=== PATIENT | female | born 1995 | race African-American/Black ===

== ENCOUNTER 2018-09-19 14:39 | Emergency (ER) | payer SELFPAY ==
[~2018-09-19] VITALS: Ht 170.2 cm; Wt 71.7 kg
[2018-09-19] MEDS ORDERED: RT-ALBUTEROL/IPRATROPIUM 3 ML (DUONEB) VIAL INH ONE (15:15)
[2018-09-19] MEDS ORDERED: NS 1000 ML IV BAG IV ONE (15:15)
[2018-09-19] MEDS ORDERED: HYDROcodone/APAP 5 MG/325 MG (LORTAB) TAB PO ONE (15:15)
[2018-09-19 15:18] LABS: HEMATOCRIT 23 % (35-52); HEMOGLOBIN 8.5 G/DL (11.5-16.0); MEAN CORPUSCULAR HEMOGLOBIN 27 PG (25-34); WHITE BLOOD COUNT 15.3 10^3/uL (4.3-11.0)
[2018-09-19 15:19] LABS: BASOPHILS # (AUTO) 0.1 10^3/uL (0.0-0.1); BASOPHILS % (AUTO) 1 % (0-10); EOSINOPHILS # (AUTO) 0.5 10^3/uL (0.0-0.3); EOSINOPHILS % (AUTO) 4 % (0-10); LYMPHOCYTES # (AUTO) 1.3 X 10^3 (1.0-4.0); LYMPHOCYTES % (AUTO) 8 % (12-44); MEAN CORPUSCULAR HGB CONC 37 G/DL (32-36); MEAN CORPUSCULAR VOLUME 74 FL (80-99); MEAN PLATELET VOLUME 10.5 FL (7.4-10.4); MONOCYTES # (AUTO) 1.2 X 10^3 (0.0-1.0); MONOCYTES % (AUTO) 8 % (0-12); NEUTROPHILS # (AUTO) 12.2 X 10^3 (1.8-7.8); NEUTROPHILS % (AUTO) 80 % (42-75); PLATELET COUNT 255 10^3/uL (130-400); RED CELL DISTRIBUTION WIDTH 16.1 % (10.0-14.5)
--- NOTE | 2018-09-19 15:20 | ED General ---
General Chief Complaint: Cough/Cold/Flu Symptoms Stated Complaint: COUGH; VOMITING History of Present Illness Date Seen by Provider: Sep 19, 2018 Time Seen by Provider: 15:15 Initial Comments Patient presents emergency department for evaluation of multiple symptoms including cough congestion sore throat generalized malaise fatigue. She denies any fevers or chills to me denies having any chest pain arthralgias myalgias abdominal pain nausea vomiting diarrhea vaginal bleeding or vaginal discharge. She says that she has sickle cell disease and is followed by nutrition services aide in [place] but she is on the road as a saleswoman. She says that she usually takes Percocet for pain but has not been able to pick it up. She says the cough is productive of greenish sputum but she denies any shortness of breath. She says it hurts to swallow but she is able to with no difficulty and has been dr inking fluids but not as much as she thinks she should and she feels that she may be dehydrated. She says that she has never had acute chest syndrome or other complications from her sickle cell disease. She is in no obvious distress with normal vital signs including option saturation 97% and heart rate of 94. Allergies and Home Medications Allergies Coded Allergies: hydromorphone (Unverified Adverse Reaction, Mild, 09/19/18) latex (Unverified Adverse Reaction, Unknown, 09/19/18) Uncoded Allergies: CHOCOLATE (Adverse Reaction, Unknown, 09/19/18) Patient Home Medication List Home Medication List Reviewed: Yes Review of Systems Review of Systems Constitutional: No chills, No fever; malaise EENTM: nose congestion, throat pain Respiratory: cough; No short of breath Cardiovascular: No chest pain Gastrointestinal: No abdominal pain, No vomiting Genitourinary: No dysuria Musculoskeletal: No back pain, No joint pain Skin: no symptoms reported Psychiatric/Neurological: No Symptoms Reported All Other Systems Reviewed Negative Unless Noted: Yes Past Hwuovts-Ksiufc-Dljmua Hx Patient Social History Alcohol Use: Rarely Uses Recreational Drug Use: Yes (occasional) Drug of Choice: THC Smoking Status: Current Everyday Smoker Type Used: Cigarettes 2nd Hand Smoke Exposure: Yes Recent Hopitalizations: No Physical Abuse: No Sexual Abuse: No Mistreated: No Fear: No Immunizations Up To Date Tetanus Booster (TDap): Unknown Seasonal Allergies Seasonal Allergies: Yes Past Medical History Surgeries: Yes Adenoidectomy, Tonsillectomy Respiratory: Yes (seasonal bronchitis) Neurological: No Hx : 5 Hx Para: 3 Hx Total # of Abortions (Sp): 1 Genitourinary: No Gastrointestinal: No Musculoskeletal: No Endocrine: No HEENT: No Cancer: No Psychosocial: No Integumentary: No Blood Disorders: Yes (Sickle Cell Disease) Physical Exam Vital Signs Vital Signs - First Documented Capillary Refill : Height, Weight, BMI Height: '" Weight: lbs. oz. kg; BMI Method: General Appearance: No Apparent Distress, WD/WN HEENT: PERRL/EOMI, TMs Normal, Pharyngeal Erythema Neck: Full Range of Motion, Supple Respiratory: No Respiratory Distress, Crackles, Wheezing Cardiovascular: Regular Rate, Rhythm, No Edema, Normal Peripheral Pulses Gastrointestinal: Non Tender, Soft Back: Normal Inspection Extremity: Normal Capillary Refill Neurologic/Psychiatric: Alert, Oriented x3 Skin: Normal Color, Warm/Dry Progress/Results/Core Measures Suspected Sepsis SIRS Temperature: Pulse: Respiratory Rate: Laboratory Tests 09/19/18 15:05: White Blood Count 15.3H Blood Pressure / Mean: Laboratory Tests 09/19/18 15:05: Creatinine 0.86, Platelet Count 255, Total Bilirubin 2.3H Results/Orders Lab Results Laboratory Tests Test 09/19/18 15:05 Range/Units White Blood Count 15.3 H 4.3-11.0 10^3/uL Red Blood Count 3.14 L 4.35-5.85 10^6/uL Hemoglobin 8.5 L 11.5-16.0 G/DL Hematocrit 23 L 35-52 % Mean Corpuscular Volume 74 L 80-99 FL Mean Corpuscular Hemoglobin 27 25-34 PG Mean Corpuscular Hemoglobin Concent 37 H 32-36 G/DL Red Cell Distribution Width 16.1 H 10.0-14.5 % Platelet Count 255 130-400 10^3/uL Mean Platelet Volume 10.5 H 7.4-10.4 FL Neutrophils (%) (Auto) 80 H 42-75 % Lymphocytes (%) (Auto) 8 L 12-44 % Monocytes (%) (Auto) 8 0-12 % Eosinophils (%) (Auto) 4 0-10 % Basophils (%) (Auto) 1 0-10 % Neutrophils # (Auto) 12.2 H 1.8-7.8 X 10^3 Lymphocytes # (Auto) 1.3 1.0-4.0 X 10^3 Monocytes # (Auto) 1.2 H 0.0-1.0 X 10^3 Eosinophils # (Auto) 0.5 H 0.0-0.3 10^3/uL Basophils # (Auto) 0.1 0.0-0.1 10^3/uL Neutrophils % (Manual) 87 % Lymphocytes % (Manual) 7 % Monocytes % (Manual) 2 % Eosinophils % (Manual) 1 % Basophils % (Manual) 0 % Band Neutrophils 3 % Nucleated Red Blood Cells 2 Poikilocytosis SLIGHT Anisocytosis SLIGHT Elliptocytes SLIGHT Sodium Level 142 135-145 MMOL/L Potassium Level 4.3 3.6-5.0 MMOL/L Chloride Level 107 98-107 MMOL/L Carbon Dioxide Level 21 21-32 MMOL/L Anion Gap 14 5-14 MMOL/L Blood Urea Nitrogen 7 7-18 MG/DL Creatinine 0.86 0.60-1.30 MG/DL Estimat Glomerular Filtration Rate > 60 BUN/Creatinine Ratio 8 Glucose Level 105 70-105 MG/DL Calcium Level 9.1 8.5-10.1 MG/DL Corrected Calcium 8.5-10.1 MG/DL Total Bilirubin 2.3 H 0.1-1.0 MG/DL Aspartate Amino Transf (AST/SGOT) 30 5-34 U/L Alanine Aminotransferase (ALT/SGPT) 20 0-55 U/L Alkaline Phosphatase 57 40-136 U/L Total Protein 7.5 6.4-8.2 GM/DL Albumin 4.7 H 3.2-4.5 GM/DL My Orders Orders - CHRISTINE NG DO Cbc With Automated Diff (09/19/18 15:03) Comprehensive Metabolic Panel (09/19/18 15:03) Chest Pa/Lat (2 View) (09/19/18 15:03) Ns Iv 1000 Ml (Sodium Chloride 0.9%) (09/19/18 15:15) Hydrocodone/Apap 5/325 Tablet (Lortab 5 (09/19/18 15:15) Albuterol/Ipra Inhalation Soln (Duoneb I (09/19/18 15:15) Svn Small Volume Nebulizer (09/19/18 15:03) Manual Differential (09/19/18 15:05) Ceftriaxone For Iv Use (Rocephin For I (09/19/18 15:45) Medications Given in ED Current Medications Medications Dose Ordered Sig/Linda Route Start Time Stop Time Status Last Admin Dose Admin Acetaminophen/ Hydrocodone Bitart 2 tab ONCE ONCE PO 09/19/18 15:15 09/19/18 15:16 DC 09/19/18 15:25 2 TAB Albuterol/ Ipratropium 3 ml ONCE ONCE INH 09/19/18 15:15 09/19/18 15:16 DC 09/19/18 15:24 3 ML Sodium Chloride 1,000 ml ONCE ONCE IV 09/19/18 15:15 09/19/18 15:16 DC 09/19/18 15:24 1,000 ML Vital Signs/I&O 09/19/18 09/19/18 09/19/18 14:40 14:40 15:25 Temp 100.1 100.1 Pulse 94 Resp 20 B/P (MAP) 116/62 (80) Pulse Ox 97 O2 Delivery Room Air Room Air Capillary Refill : Progress Note : Progress Note Patient does not have any fevers or chest pain inside-out acute chest syndrome a t this time but she likely does have bronchitis or pneumonia based off productive greenish sputum. Of not she thinks her last menstrual cycle was in mid to late July and think she may be approximately 2 months but she denies any abdominal pain dysuria vaginal bleeding or vaginal discharge. I will check labs chest x-ray treated with a DuoNeb Concord and reassess. Patient has an infiltrate on x-ray most likely compatible with a pneumonia. I told patient results of imaging and blood tests and my concern for infection. I told her given her history of sickle cell disease this could be early acute chest syndrome and I recommended transfer to another facility where she could be further tested observed and treated. She refused stating that she is traveling at this time and would not be able to stay in the hospital. I told her that I could start her on antibiotics, Concord for pain and an inhaler. I told her this may not be enough and she may require admission for IV antibiotics and further treatment. I told her what symptoms to look out for including chest pain shortness of breath fevers or other concerns and those of the reasons to return to return to the emergency department immediately. Patient aware and agreeable with plan for discharge and verbalized understanding of the above instructions. Departure Impression Primary Impression: Pneumonia Qualified Codes: J18.1 - Lobar pneumonia, unspecified organism Additional Impressions: Leukocytosis (leucocytosis) Sickle cell anemia Disposition: 01 HOME, SELF-CARE Condition: Stable Departure-Patient Inst. Referrals: NO,LOCAL PHYSICIAN (PCP/Family) Primary Care Physician Patient Instructions: Pneumonia, Adult (DC) Add. Discharge Instructions: All discharge instructions reviewed with patient and/or family. Voiced understanding. Drink plenty of water. Follow with PCP as soon as you can and come back to the ED sooner with worsening fevers, cough, pain, or other general concerns. Scripts Hydrocodone/Acetaminophen (Concord 5-325 Tablet) 1 Each Tablet 1 TAB PO Q4-6HR for Pain MDD 10 TABS for 7 Days, #14 TAB Prov: CHRISTINE NG DO 09/19/18 Azithromycin (Zithromax) 250 Mg Tablet 250 MG PO UD, #6 TAB TAKE 2 TABLETS TODAY, THEN TAKE 1 TABLET DAILY FOR 4 MORE DAYS Prov: CHRISTINE NG DO 09/19/18 Albuterol Sulfate (PROAIR HFA) 1 Puff Puff 2 PUFF IH Q4H, #1 INHALER 1 PUFF = 90 MCG Prov: CHRISTINE NG DO 09/19/18 CHRISTINE NG DO Sep 19, 2018 15:20
--- NOTE | 2018-09-19 15:27 | Diagnostic Imaging Report ---
PATIENT HISTORY: Cough and fever. TECHNIQUE: Two views of the chest. COMPARISON: None. FINDINGS: The lung volumes are normal. There appears to be subtle increased density at the right lower lobe. No large pleural effusion or pneumothorax is seen. The cardiomediastinal silhouette is normal in size and contour. No acute osseous abnormality is seen. IMPRESSION: Subtle increased density in the right lower lobe, may represent atelectasis or developing infection in the appropriate clinical setting. Dictated by: Dictated on workstation # [id number]
[2018-09-19 15:34] LABS: ANISOCYTOSIS SLIGHT; BAND NEUTROPHILS 3 %; BASOPHILS % (MANUAL) 0 %; EOSINOPHILS % (MANUAL) 1 %; LYMPHOCYTES % (MANUAL) 7 %; MONOCYTES % (MANUAL) 2 %; NEUTROPHILS % (MANUAL) 87 %; POIKILOCYTOSIS SLIGHT
[2018-09-19 15:35] LABS: BUN/CREATININE RATIO 8; CARBON DIOXIDE 21 MMOL/L (21-32); CHLORIDE 107 MMOL/L (98-107); CREATININE SERUM 0.86 MG/DL (0.60-1.30); ELLIPT/OVALOCYTES SLIGHT; GFR ESTIMATED > 60; NUCLEATED RED BLOOD CELLS 2; POTASSIUM 4.3 MMOL/L (3.6-5.0); SODIUM 142 MMOL/L (135-145)
[2018-09-19 15:36] LABS: ALANINE AMINOTRANSFERASE 20 U/L (0-55); ALBUMIN 4.7 GM/DL (3.2-4.5); ALKALINE PHOSPHATASE 57 U/L (40-136); BILIRUBIN,TOTAL 2.3 MG/DL (0.1-1.0); CALCIUM 9.1 MG/DL (8.5-10.1); GLUCOSE 105 MG/DL (70-105); TOTAL PROTEIN 7.5 GM/DL (6.4-8.2)
[2018-09-19] MEDS ORDERED: cefTRIAXone FOR IV USE 2,000 MG in WATER (STERILE) FOR INJECTION 20 ML IV ONE (15:45)
[2018-09-19] MEDS ORDERED: RT-ALBUINH IH (15:51)
[2018-09-19] MEDS ORDERED: HYDR-4226 PO (15:51)
[2018-09-19] MEDS ORDERED: AZIT250T PO (15:51)
[2018-09-19 16:48] VITALS: BP 92/51
== END 2018-09-19 16:48 | disposition home or self-care (01) ==
LOC: ER FS 14:41
DX: J18.9 Pneumonia, unspecified organism (principal); D72.829 Elevated white blood cell count, unspecified; D57.1 Sickle-cell disease without crisis; F12.10 Cannabis abuse, uncomplicated; F17.210 Nicotine dependence, cigarettes, uncomplicated; Z91.040 Latex allergy status; Z88.5 Allergy status to narcotic agent; Z90.89 Acquired absence of other organs
CPT/HCPCS: 36415; 71046; 80053; 85007; 85027; 94640